=== PATIENT | male | born 1965 | race Caucasian/White ===

== ENCOUNTER 2019-02-08 12:08 | Emergency (ER) | payer OTHER, SELFPAY ==
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
== END 2019-02-08 14:11 | disposition home or self-care (01) ==
LOC: ERS 12:08
DX: S01.511A Laceration without foreign body of lip, initial encounter (principal); S00.31XA Abrasion of nose, initial encounter; S20.319A Abrasion of unspecified front wall of thorax, initial encounter; S80.212A Abrasion, left knee, initial encounter; S80.211A Abrasion, right knee, initial encounter; V03.99XA Pedestrian with other conveyance injured in collision with car, pick-up truck or van, unspecified whether traffic or nontraffic accident, initial encounter
CPT/HCPCS: 12011; 70450; 71045; G0390

== ENCOUNTER 2019-02-23 07:29 | Outpatient (CLI) | payer OTHER ==
--- NOTE | 2019-02-23 08:21 | ULT ---
US Thyroid STANDARD HISTORY: Thyroid nodule noted on CT. COMPARISON: None. FINDINGS: Real-time imaging of the right and left lobes of the gland were performed. The right lobe measures 1.9 x 1.8 x 4.7 cm. The left lobe measures 1.6 x 4.0 x 6.5 cm. There is a large 2.9 x 4.5 cm lower pole left lobe thyroid nodule present. This is a solid lesion whi ch corresponds to a TIRADS 3 lesion. A smaller subcentimeter nodule seen adjacent IMPRESSION: TI-RADS 3 nodule involving the lower pole of the left lobe of the thyroid gland. Given th e size the recommendation is for fine-needle aspiration.
--- NOTE | 2019-02-23 09:04 | RAD ---
EXAM: Esophagram HISTORY: Dysphagia; patient feels like things get stuck COMPARISON: None EXPOSURE: 2.9 minutes; 6.950 Gy per centimeter squared FINDINGS: A double contrast barium swallow/esophagram was performed. Esophageal motility is normal. There is an area of focal narrowing in the distal aspect of the esophagus which likely represents a s mall stricture. The 13 mm barium tablet lodged at this location and would not pass through this until much later in the study. No extrinsic compression on the esophagus is seen. No hiatal hernia. No gastroesophageal reflux. IMPRESSION: Esophageal stricture in the distal aspect of the esophagus.
== END 2019-02-23 07:30 | disposition home or self-care (01) ==
LOC: ULT 07:29
PROVIDERS: ATTEND Otolaryngology Plastic Surgery within the Head & Neck
DX: R13.10 Dysphagia, unspecified (principal); E07.89 Other specified disorders of thyroid; K22.2 Esophageal obstruction
CPT/HCPCS: 74220; 76536

== ENCOUNTER 2019-03-02 08:33 | Outpatient (CLI) | payer OTHER ==
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
== END 2019-03-02 08:34 | disposition home or self-care (01) ==
LOC: TBSIIMAG 08:33
PROVIDERS: ATTEND Neurological Surgery
DX: M54.12 Radiculopathy, cervical region (principal)
CPT/HCPCS: 72040

== ENCOUNTER 2019-03-25 13:50 | Outpatient (CLI) | payer OTHER ==
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
== END 2019-03-25 13:51 | disposition home or self-care (01) ==
LOC: TBSIIMAG 13:50
PROVIDERS: ATTEND Neurological Surgery
DX: M47.22 Other spondylosis with radiculopathy, cervical region (principal)
CPT/HCPCS: 72040

== ENCOUNTER → 2019-03-30 | Day surgery (SDC) | payer OTHER ==
[2019-03-08 14:21] VITALS: BMI 21.5
[2019-03-09 14:11] VITALS: BP 117/75; TEMP 98.5
[~2019-03-30] MED LIST: Lidocaine 1% PF 5 ML VIAL ONE; Sodium Bicarbonate 2.5 MEQ/5 ML VIAL ONE
--- NOTE | 2019-03-30 13:53 | ULT ---
US Thyroid Needle Bx History: Neck mass Comparison: Thyroid ultrasound February 23, 2019 Findings: The mass in the left neck is posterior and caudal to the thyroid with likely invasion into the posterior border of the thyroid. Mass does not appear to originate from the thyroid. Impression: Mass of the left neck posterior and caudal to the thyroid with likely some posterior inva ramírez. This is not originating from the thyroid gland and biopsy was not performed. Case was discussed with Dr. Galdamez and patient is to follow-up in clinic today.
--- NOTE | 2019-03-30 15:21 | ULT ---
US NECK SOFT TISSUE History: Neck mass Comparison: Thyroid ultrasound February 23, 2019 Findings: The mass in the left neck is posterior and caudal to the thyroid with likely invasion into the posterior border of the thyroid. Mass does not appear to originate from the thyroid. Impression: Mass of the left neck posterior and caudal to the thyroid with likely some posterior inva ramírez. This is not originating from the thyroid gland and biopsy was not performed. Case was discussed with Dr. Galdamez and patient is to follow-up in clinic today. Transcribed Date/Time: 03/30/2019 3:20 PM
== END ==
LOC: ULT 03-09 12:27
PROVIDERS: ATTEND Otolaryngology Plastic Surgery within the Head & Neck
DX: E04.1 Nontoxic single thyroid nodule (principal); K22.2 Esophageal obstruction; K21.9 Gastro-esophageal reflux disease without esophagitis; F17.200 Nicotine dependence, unspecified, uncomplicated; Z53.9 Procedure and treatment not carried out, unspecified reason
CPT/HCPCS: 76536; J2001

== ENCOUNTER 2019-04-13 13:24 | Outpatient (CLI) | payer OTHER ==
[2019-04-13 14:28] LABS: Mean Corpuscular HGB CONC 34.1 g/dL (32.0-36.0); Mean Corpuscular Hemoglobin 31.2 pg (27.0-31.0); Mean Corpuscular Volume 91.5 fL (78.0-98.0); Mean Platelet Volume 8.7 fL (7.4-10.4); Platelet Count 185 thou/uL (130-400); RBC Distribution Width 11.4 % (11.5-14.5); Red Blood Cell (RBC) Count 4.48 mill/uL (4.70-6.10); White Blood Cell (WBC) Count 5.6 thou/uL (4.8-10.8)
[2019-04-13 14:55] LABS: Anion Gap 11 mmol/L (10-20); BUN (Urea Nitrogen) 10 mg/dL (8.4-25.7); Calc. Creatinine Clearance 0 mL/min (70-130); Calcium 9.4 mg/dL (7.8-10.44); Carbon Dioxide 28 mmol/L (22-29); Chloride 103 mmol/L (98-107); Estimated GFR-MDRD 86; Glucose 78 mg/dL (70-105); Potassium 3.5 mmol/L (3.5-5.1); Sodium 138 mmol/L (136-145)
--- NOTE | 2019-04-13 23:02 | EKG ---
Test Reason : Blood Pressure : / mmHG Vent. Rate : 058 BPM Atrial Rate : 058 BPM P-R Int : 164 ms QRS Dur : 094 ms QT Int : 392 ms P-R-T Axes : 081 081 077 degrees QTc Int : 384 ms Sinus bradycardia Baseline artifact. ST elevation, consider early repolarization Borderline ECG No previous ECGs available Confirmed by Leon PEREIRA ([id number]) on 04/13/2019 11:01:35 PM Referred By: ZOHRA Confirmed By:Leon PEREIRA
== END 2019-04-13 13:25 | disposition home or self-care (01) ==
LOC: LABBT 13:24
PROVIDERS: ATTEND Thoracic Surgery (Cardiothoracic Vascular Surgery)
DX: Z01.818 Encounter for other preprocedural examination (principal); R22.1 Localized swelling, mass and lump, neck
CPT/HCPCS: 80048; 85027; 93005; 93010

== ENCOUNTER 2019-04-14 05:58 | Day surgery (SDC) | payer OTHER ==
[2019-04-13 13:49] VITALS: BMI 21.5
[2019-04-14] MEDS ORDERED: ceFAZolin Sodium (SDC) 2 GM/100 ML BAG ONE (06:55)
[2019-04-14] MEDS ORDERED: Bupivacaine HCl 0.5%/Epinephrine 1:200,000/PF 30 ml Vial ONE (07:03)
[2019-04-14] MEDS ORDERED: Fentanyl 100 MCG/2 ML VIAL ONE (07:17)
--- NOTE | 2019-04-14 10:36 | OP ---
DATE OF PROCEDURE: 04/14/2019 PREOPERATIVE DIAGNOSIS: Left neck/mediastinal mass. POSTOPERATIVE DIAGNOSIS: Benign thyroid goiter. PROCEDURE PERFORMED: partial thyroidectomy Specimen: Left substernal thyroid - frozen returned as benign thyroid tissue ANESTHESIA: General endotracheal-Cara Pelletier CRNA. ESTIMATED BLOOD LOSS: Minimal. DESCRIPTION OF PROCEDURE: After consent was obtained, the patient was brought to the operating room, placed in supine position on the operating room table. Appropriate central line was placed and general endotracheal anesthesia was induced. Head was rotated to the right. Neck and chest prepped and draped in usual sterile fashion. Skin incision was made at the sternal notch extending up medial to the sternocleidomastoid muscle. Platysma was then incised. Strap muscles were spread. The mass was then localized and using blunt dissection, brought up into the operative field. Careful dissection was used to dissect out the feeding vessels , which were divided between ties. The base of the mass was then clamped and divided sharply. Base was then tied. Mass was sent to the pathologist for frozen section, which returned as benign thyroid tissue with no malignant areas noted. Wounds were irrigated. Hemostasis was ensured. Wounds were then closed in layers. Dermabond applied to skin. The patient was awakened, extubated, transferred to the recovery room in stable condition. He will be sent home today. Job ID: [id number] [facility]
== END 2019-04-14 10:45 | disposition home or self-care (01) ==
LOC: SDC 05:58
PROVIDERS: ATTEND Thoracic Surgery (Cardiothoracic Vascular Surgery)
PROC: 0GBG0ZZ Excision of Left Thyroid Gland Lobe, Open Approach (ICD-10-PCS; principal; 2019-04-14)
DX: E04.2 Nontoxic multinodular goiter (principal); K21.9 Gastro-esophageal reflux disease without esophagitis; F17.290 Nicotine dependence, other tobacco product, uncomplicated; Z79.899 Other long term (current) drug therapy
CPT/HCPCS: 88305; 88331; J0670; J0690; J3010

== ENCOUNTER 2019-10-12 07:58 | Outpatient (CLI) | payer OTHER ==
--- NOTE | 2019-10-12 09:43 | CT ---
EXAM: CT cervical spine PROVIDED CLINICAL HISTORY: Neck pain. Patient states he has a catch when he turns his head to the left. TECHNIQUE: Contiguous axial CT images are obtained through the cervical spine from the skull base to the T2 leve l. Sagittal and coronal reformatted images are provided. COMPARISON: None FINDINGS: No evidence for fracture or traumatic subluxation. There is slight widening of the interfacet distanc e at the C6-7 level on the left which is asymmetric compared to the right. However, there is suggestion of mild bony remodeling in this region, and this is probably a more remote finding. The ve rtebral body heights and intervertebral disc spaces are within normal limits. No prevertebral soft tissue swelling apparent. There is mild symmetric pleural and parenchymal scarring seen in the lung apices. Few small subcentimeter hypodense nodules are seen in the left lobe of the thyroid gland. There is al so a calcification at the posterior aspect left lobe of the thyroid gland. Ultrasound examination was performed on 02/23/2019 which demonstrated a few subcentimeter nodules. There was a larger mass se en just posterior to the left lobe of thyroid gland on ultrasound examination which is not seen on this exam and may have been surgically removed. IMPRESSION: 1. No evidence for acute fracture or traumatic subluxation. 2. Slight widening of the facet joint on the left at the C6-7 level which is asymmetric compared to t he right. There is mild bony remodeling of the facets in this region, and this probably represents a more chronic finding. Again, there is no evidence of a fracture or subluxation at this level. Howev er, depending on clinical concern or if there is focal pain at this level, MRI cervical spine may be helpful to evaluate for edema in this region.
== END 2019-10-12 07:59 | disposition home or self-care (01) ==
LOC: TBSIIMAG 07:58
PROVIDERS: ATTEND Neurological Surgery
DX: M54.2 Cervicalgia (principal); M48.8X2 Other specified spondylopathies, cervical region
CPT/HCPCS: 72125